=== PATIENT | female | born 1960 | race Caucasian/White ===

== ENCOUNTER → 2020-07-22 | Day surgery (SDC) | payer MEDICARE ==
[~2020-07-22] VITALS: Ht 162.6 cm; Wt 106.6 kg
[~2020-07-22] MED LIST: ADIPEX-P37.5 MG PO; BIOTIN1 MG PO; COLLAGEN PO; COZAAR100 MG PO; HYDROCHLOROTHIA25 MG PO; LAMICTAL100 MG PO; MILK THISTLE140 M1 PO; NORVASC10 MG PO; OMEGA 3 FISH O1 EACH PO; PLAQUENIL 200200 MG PO; PROBIOTIC1 EAC3 PO; REXULTI PO; REXULTI1 MG PO; SYNTHROID150 MCG PO; VITAMIN D1000 UNI1 PO
== END | disposition home or self-care (01) ==
LOC: OR 07:07
DX: K22.70 Barrett's esophagus without dysplasia (principal); K29.70 Gastritis, unspecified, without bleeding; B96.81 Helicobacter pylori [H. pylori] as the cause of diseases classified elsewhere; K74.60 Unspecified cirrhosis of liver; K76.6 Portal hypertension; K31.89 Other diseases of stomach and duodenum; K21.00 Gastro-esophageal reflux disease with esophagitis, without bleeding; I10 Essential (primary) hypertension; E03.9 Hypothyroidism, unspecified; F20.9 Schizophrenia, unspecified; M06.9 Rheumatoid arthritis, unspecified; E78.5 Hyperlipidemia, unspecified; K21.9 Gastro-esophageal reflux disease without esophagitis; M19.90 Unspecified osteoarthritis, unspecified site; E66.01 Morbid (severe) obesity due to excess calories; Z68.41 Body mass index [BMI] 40.0-44.9, adult; Z86.010 Personal history of colon polyps; Z88.6 Allergy status to analgesic agent; Z79.899 Other long term (current) drug therapy
CPT/HCPCS: J2001; J2704; J7040

== ENCOUNTER → 2020-11-11 | Outpatient (CLI) | payer MEDICARE | LOC: US 08:42 | DX: K74.60 Unspecified cirrhosis of liver (principal) | CPT/HCPCS: 76700 ==

== ENCOUNTER → 2021-04-13 | Outpatient (CLI) | payer MEDICARE | LOC: US 07:50 | DX: K74.60 Unspecified cirrhosis of liver (principal) | CPT/HCPCS: 36415; 76705; 80076; 85610 ==

== ENCOUNTER → 2021-11-12 | Day surgery (SDC) | payer MEDICARE ==
[~2021-11-12] MED LIST changes: +HIGH POTENCY I134 MG PO; -MILK THISTLE140 M1 PO; +MILK THISTLE175 M2 PO; +VITAMIN D-40010 MCG PO; -VITAMIN D1000 UNI1 PO; +VITAMIN E180 MG PO
== END | disposition home or self-care (01) ==
LOC: OR 07:30
DX: K31.9 Disease of stomach and duodenum, unspecified (principal); K29.50 Unspecified chronic gastritis without bleeding; K21.00 Gastro-esophageal reflux disease with esophagitis, without bleeding; K74.69 Other cirrhosis of liver; K76.6 Portal hypertension; K31.89 Other diseases of stomach and duodenum; K22.70 Barrett's esophagus without dysplasia; K44.9 Diaphragmatic hernia without obstruction or gangrene; E66.01 Morbid (severe) obesity due to excess calories; I10 Essential (primary) hypertension; E03.9 Hypothyroidism, unspecified; Z88.6 Allergy status to analgesic agent; Z68.39 Body mass index [BMI] 39.0-39.9, adult
CPT/HCPCS: J2704; J7040